=== PATIENT | female | born 1960 | race Caucasian/White ===

== ENCOUNTER 2016-06-07 17:30 | Emergency (ER) | payer BC ==
[~2016-06-07] VITALS: Ht 172.7 cm; Wt 65.9 kg
[~2016-06-07 17:30] MED LIST: ASPIR 8181 M1 PO; Advair 250/50 Diskus IH; Advair HFA 115/21 IH; Aspirin E.C. PO; CIPRO500 MG PO; COMBIVENT IH; Ceftin PO; DAILY VALUE1 EACH PO; Ecotrin PO; Folvite PO; GABAPENTIN300 MG PO; LO-DOSE ASPIRIN81 M1 PO; Levaquin PO; MIRALAX17 GM PO; MUCINEX COLD &177 ML PO; NAPROSYN375 MG PO; NITROGLYCERIN0.4 MG SL; NITROSTAT0.4 MG SL; NO HOME MEDS; NORCO 5/3251 TABLET PO; Nitrostat,NitroQuick SL; OXYCODONE-ACET1 EACH PO; PANTOPRAZOLE SO40 MG PO; PERCOCET 5/31 TABLET PO; PREDNISONE50 MG PO; PROVENTIL HFA6.7 GM IH; Proventil,Ventolin H IH; SPIRIVA1 INHALATI IH; Spiriva IH; TRIPLE ANTIBIO1 EACH TP; TYLENOL WITH C1 EACH PO; Tylenol Regular Stre PO; ULTRAM50 MG PO; Ultram PO; ZANTAC150 MG PO; ZITHROMAX Z-PA250 MG PO; ZOVIRAX800 M1 PO; [UNRECOGNIZED DRUG - OTHER]; [UNRECOGNIZED DRUG - OTHER]; celeXA PO; predniSONE PO
[2016-06-07 18:43] LABS: HEMATOCRIT 39.2 % (36.0-46.0); MCH 28.9 PG (29.0-34.0); MCHC 32.4 G/DL (30.0-36.0); MCV 89.3 FL (83-99); MEAN PLAT.VOLUME 9.1 uM^3 (9.5-12.4); PLATELET COUNT 296 K/uL (156-360); RBC DIS.WIDTH-CV 12.1 % (11.8-14.6); RBC DIS.WIDTH-SD 38.4 % (39-53); RED BLOOD COUNT 4.39 M/uL (3.80-5.20); WHITE BLOOD COUNT 8.2 K/uL (4.1-10.2)
[2016-06-07 18:59] LABS: CHLORIDE 105 mEq/L (99-109); POTASSIUM 4.3 mEq/L (3.7-5.4); SODIUM 142 mEq/L (136-147)
[2016-06-07 19:01] LABS: GLUCOSE 103 mg/dL (70-99)
[2016-06-07 19:02] LABS: ANION GAP 9 MEQ/L (2-14)
[2016-06-07 19:05] LABS: GFR ESTIMATE (CALCULATED) > 59 mL/min/
[2016-06-07 19:06] LABS: UREA NITROGEN (BUN) 12 mg/dL (9-23)
[2016-06-07 20:08] LABS: TROP-I INTERPRETATION NEGATIVE; TROPONIN-I < 0.01 ng/mL (0.0-0.30)
[2016-06-07] MEDS ORDERED: PERCOCET 5/31 TABLET PO (21:36)
[2016-06-07] MEDS ORDERED: VALIUM2 MG PO (21:36)
[2016-06-07 21:57] VITALS: BP 101/67
== END 2016-06-07 22:01 | disposition home or self-care (01) ==
LOC: EME 17:30 → RME 17:30
PROVIDERS: Physician Assistant
DX: S29.011A Strain of muscle and tendon of front wall of thorax, initial encounter (principal); X58.XXXA Exposure to other specified factors, initial encounter; R20.2 Paresthesia of skin; R05 Cough; R53.1 Weakness; Z79.82 Long term (current) use of aspirin; Z87.891 Personal history of nicotine dependence
CPT/HCPCS: 70450; 71020; 80048; 84484; 85027; 93005; 99281; 99284

== ENCOUNTER 2016-07-04 20:54 | Observation (INO) | payer OTHER ==
[~2016-07-04] VITALS: Ht 172.7 cm; Wt 69.2 kg
[~2016-07-04 20:54] MED LIST changes: +VALIUM2 MG PO
[2016-07-04 21:27] LABS: HEMATOCRIT 38.6 % (36.0-46.0); MCHC 32.1 G/DL (30.0-36.0); MCV 90.2 FL (83-99); MEAN PLAT.VOLUME 9.1 uM^3 (9.5-12.4); PLATELET COUNT 250 K/uL (156-360); RBC DIS.WIDTH-SD 39.7 % (39-53); RED BLOOD COUNT 4.28 M/uL (3.80-5.20)
[2016-07-04 21:34] LABS: WHITE BLOOD COUNT 5.4 K/uL (4.1-10.2)
[2016-07-04 21:40] LABS: CHLORIDE 109 mEq/L (99-109); POTASSIUM 3.9 mEq/L (3.7-5.4); SODIUM 140 mEq/L (136-147)
[2016-07-04 21:42] LABS: GLUCOSE 89 mg/dL (70-99)
[2016-07-04 21:44] LABS: ANION GAP 7 MEQ/L (2-14)
[2016-07-04 21:46] LABS: GFR ESTIMATE (CALCULATED) > 59 mL/min/
[2016-07-04 21:47] LABS: UREA NITROGEN (BUN) 8 mg/dL (9-23)
[2016-07-04 21:51] LABS: TROP-I INTERPRETATION NEGATIVE; TROPONIN-I < 0.01 ng/mL (0.0-0.30)
[2016-07-04 22:11] LABS: TOTAL BILIRUBIN 0.3 mg/dL (0.0-1.0)
[2016-07-04 22:12] LABS: ALKALINE PHOSPHATASE 85 IU/L (3-129)
[2016-07-04 22:14] LABS: DIRECT BILIRUBIN 0.1 mg/dL (0.0-0.3)
[2016-07-04 22:15] LABS: LIPASE 37 U/L (1.0-51.0)
[2016-07-04] MEDS ORDERED: SPIRIVA1 INHALATI IH (22:31)
[2016-07-04] MEDS ORDERED: ADVIL200 MG PO (22:32)
[2016-07-04] MEDS ORDERED: VENTOLIN HFA18 GM IH (22:32)
[2016-07-05 00:55] VITALS: BP 119/70
[2016-07-05 02:06] LABS: ADD MIUA? YES; BILIRUBIN NEGATIVE; BLOOD NEGATIVE; COLOR STRAW ((YELLOW)); GLUCOSE (STRIP) NEGATIVE; KETONES NEGATIVE; LEUKOCYTES LARGE; NITRITE NEGATIVE; PROTEIN (STRIP) NEGATIVE; SPECIFIC GRAVITY 1.006 (1.000-1.030); UROBILINOGEN 0.2 MG/DL (0.2-1.0)
[2016-07-05 02:46] LABS: BACTERIA NONE SEEN /HPF; EPITHELIAL CELLS RARE /HPF; MUCUS TRACE /LPF; RED BLOOD CELLS 15-20 /HPF (0-5); UCUL ADDED? NO
[2016-07-05 03:59] VITALS: BP 83/53
[2016-07-05 07:47] VITALS: BP 100/59
[2016-07-05 09:35] LABS: HEMATOCRIT 36.2 % (36.0-46.0); MCH 29.1 PG (29.0-34.0); MCHC 31.8 G/DL (30.0-36.0); MCV 91.6 FL (83-99); MEAN PLAT.VOLUME 9.2 uM^3 (9.5-12.4); PLATELET COUNT 209 K/uL (156-360); RBC DIS.WIDTH-CV 11.9 % (11.8-14.6); RBC DIS.WIDTH-SD 40.4 % (39-53); RED BLOOD COUNT 3.95 M/uL (3.80-5.20); WHITE BLOOD COUNT 4.6 K/uL (4.1-10.2)
[2016-07-05 09:55] LABS: ANION GAP 6 MEQ/L (2-14); CHLORIDE 109 MEQ/L (99-109); POTASSIUM 4.6 MEQ/L (3.7-5.4); SAMPLE HEMOLYSIS CHECK 0; SAMPLE ICTERIC CHECK 0; SAMPLE LIPEMIA CHECK 0; SODIUM 140 MEQ/L (136-147)
[2016-07-05 09:58] LABS: HDL CHOLESTEROL 40 MG/DL (Desirable>=50); LDL CHOLESTEROL 84 mg/dL (Desirable<100); NON-HDL CHOLESTEROL 108 mg/dL (Desirable<160); TOTAL CHOLESTEROL 148 mg/dL (Desirable<200); TRIGLYCERIDES 119 MG/DL (Normal: <150)
[2016-07-05 10:01] LABS: GFR ESTIMATE (CALCULATED) > 59 mL/min/; GLUCOSE 99 mg/dL (70-99); UREA NITROGEN (BUN) 10 mg/dL (9-23)
[2016-07-05 10:03] LABS: TROP-I INTERPRETATION NEGATIVE; TROPONIN-I < 0.01 ng/mL (0.0-0.30)
[2016-07-05 11:37] VITALS: BP 101/58
== END 2016-07-05 17:10 | disposition home or self-care (01) ==
LOC: EME 20:54 → 5WEST 23:18 → EDOF 23:18 → 5WEST 07-05 00:17
PROVIDERS: Nurse Practitioner Family; Physician Assistant Medical
DX: R07.89 Other chest pain (principal); I25.10 Atherosclerotic heart disease of native coronary artery without angina pectoris; J44.9 Chronic obstructive pulmonary disease, unspecified; G89.29 Other chronic pain; I25.2 Old myocardial infarction; F32.9 Major depressive disorder, single episode, unspecified; I69.351 Hemiplegia and hemiparesis following cerebral infarction affecting right dominant side; Z85.038 Personal history of other malignant neoplasm of large intestine; Z87.891 Personal history of nicotine dependence
CPT/HCPCS: 70450; 71020; 73502; 73630; 80048; 80061; 80076; 81003; 83690; 84484; 85027; 93005; 99202; 99281; 99285; G0378; J0780; J1200; J1644; J1885; J2270; J2405; J7030

== ENCOUNTER 2016-07-23 22:09 | Emergency (ER) | payer OTHER ==
[~2016-07-23] VITALS: Ht 172.7 cm; Wt 66.2 kg
[~2016-07-23 22:09] MED LIST changes: +ADVIL200 MG PO; +VENTOLIN HFA18 GM IH
[2016-07-23 22:35] LABS: HEMATOCRIT 40.2 % (36.0-46.0); MCH 28.8 PG (29.0-34.0); MCHC 31.8 G/DL (30.0-36.0); MCV 90.5 FL (83-99); PLATELET COUNT 241 K/uL (156-360); RED BLOOD COUNT 4.44 M/uL (3.80-5.20); WHITE BLOOD COUNT 4.5 K/uL (4.1-10.2)
[2016-07-23 22:45] LABS: CHLORIDE 106 mEq/L (99-109); POTASSIUM 3.7 mEq/L (3.7-5.4); SODIUM 140 mEq/L (136-147)
[2016-07-23 22:47] LABS: GLUCOSE 89 mg/dL (70-99)
[2016-07-23 22:48] LABS: ANION GAP 9 MEQ/L (2-14)
[2016-07-23 22:51] LABS: GFR ESTIMATE (CALCULATED) > 59 mL/min/
[2016-07-23 22:52] LABS: UREA NITROGEN (BUN) 12 mg/dL (9-23)
[2016-07-24] MEDS ORDERED: VENTOLIN HFA18 GM IH (00:23)
[2016-07-24] MEDS ORDERED: PREDNISONE50 MG PO (00:23)
[2016-07-24] MEDS ORDERED: TESSALON PERLE100 MG PO (00:30)
[2016-07-24 00:49] VITALS: BP 147/99
== END 2016-07-24 01:09 | disposition home or self-care (01) ==
LOC: EME 22:09
DX: J20.9 Acute bronchitis, unspecified (principal); J44.0 Chronic obstructive pulmonary disease with (acute) lower respiratory infection; Z79.82 Long term (current) use of aspirin; Z87.891 Personal history of nicotine dependence
CPT/HCPCS: 71020; 80048; 85027; 94640 76; 94664; 99281; 99284; J7512

== ENCOUNTER 2016-07-30 19:11 | Inpatient (IN) | payer OTHER ==
[~2016-07-30] VITALS: Ht 174 cm; Wt 63.2 kg
[~2016-07-30 19:11] MED LIST changes: +TESSALON PERLE100 MG PO
[2016-07-30 20:14] LABS: ADD MIUA? YES; BILIRUBIN NEGATIVE; BLOOD NEGATIVE; COLOR YELLOW ((YELLOW)); GLUCOSE (STRIP) NEGATIVE; KETONES NEGATIVE; LEUKOCYTES TRACE; NITRITE NEGATIVE; PROTEIN (STRIP) NEGATIVE; SPECIFIC GRAVITY 1.017 (1.000-1.030); UROBILINOGEN 0.2 MG/DL (0.2-1.0)
[2016-07-30 20:27] LABS: CHLORIDE 107 mEq/L (99-109); HEMATOCRIT 37.2 % (36.0-46.0); MCH 29.4 PG (29.0-34.0); MCHC 33.6 G/DL (30.0-36.0); MCV 87.5 FL (83-99); MEAN PLAT.VOLUME 8.7 uM^3 (9.5-12.4); PLATELET COUNT 292 K/uL (156-360); POTASSIUM 3.8 mEq/L (3.7-5.4); RBC DIS.WIDTH-SD 38.5 % (39-53); RED BLOOD COUNT 4.25 M/uL (3.80-5.20); SODIUM 139 mEq/L (136-147)
[2016-07-30 20:29] LABS: GLUCOSE 111 mg/dL (70-99); WHITE BLOOD COUNT 9.4 K/uL (4.1-10.2)
[2016-07-30 20:31] LABS: ANION GAP 9 MEQ/L (2-14); TOTAL BILIRUBIN 0.4 mg/dL (0.0-1.0)
[2016-07-30 20:33] LABS: ALKALINE PHOSPHATASE 86 IU/L (3-129); GFR ESTIMATE (CALCULATED) > 59 mL/min/
[2016-07-30 20:34] LABS: UREA NITROGEN (BUN) 14 mg/dL (9-23)
[2016-07-30 20:43] LABS: INFLUENZA A VIRAL ANTIGEN NEGATIVE; INFLUENZA B VIRAL ANTIGEN NEGATIVE
[2016-07-30 20:52] LABS: AMORPHOUS PHOSPHATE CRYSTALS 4+; BACTERIA RARE /HPF; EPITHELIAL CELLS 1+ /HPF; MUCUS NONE SEEN /LPF; RED BLOOD CELLS 0-5 /HPF (0-5); UCUL ADDED? NO; WHITE BLOOD CELLS 0-5 /HPF (0-5)
[2016-07-31] VITALS (8 sets, daily range): BP systolic 99–147; BP diastolic 61–71
[2016-08-01 03:35] VITALS: BP 120/65
[2016-08-01 08:00] VITALS: BP 123/78
[2016-08-01 12:00] VITALS: BP 122/73
[2016-08-01 16:10] VITALS: BP 122/65
[2016-08-01 19:48] VITALS: BP 131/71
[2016-08-01 23:42] VITALS: BP 117/74
[2016-08-02 03:33] VITALS: BP 132/76
[2016-08-02 08:00] VITALS: BP 143/76
[2016-08-02 12:00] VITALS: BP 122/71
[2016-08-02 16:00] VITALS: BP 121/67
[2016-08-02 19:39] VITALS: BP 150/70
[2016-08-02 19:43] VITALS: BP 119/70
[2016-08-03] VITALS (8 sets, daily range): BP systolic 125–166; BP diastolic 66–85
[2016-08-04 04:03] VITALS: BP 138/65
[2016-08-04 07:10] VITALS: BP 160/89
[2016-08-04 11:00] VITALS: BP 133/81
[2016-08-04 15:55] VITALS: BP 137/92
[2016-08-04 19:58] VITALS: BP 144/80
[2016-08-05] VITALS (7 sets, daily range): BP systolic 132–148; BP diastolic 79–99
[2016-08-05 07:05] LABS: HEMATOCRIT 36.5 % (36.0-46.0); MCHC 32.3 G/DL (30.0-36.0); MCV 89.7 FL (83-99); MEAN PLAT.VOLUME 9.2 uM^3 (9.5-12.4); NRBC (%) 0.2 /100 WBC (0-0); PLATELET COUNT 285 K/uL (156-360); RBC DIS.WIDTH-CV 12.4 % (11.8-14.6); RBC DIS.WIDTH-SD 41.1 % (39-53); RED BLOOD COUNT 4.07 M/uL (3.80-5.20); WHITE BLOOD COUNT 18.9 K/uL (4.1-10.2)
[2016-08-05 07:14] LABS: ANION GAP 9 MEQ/L (2-14); CHLORIDE 101 MEQ/L (99-109); GFR ESTIMATE (CALCULATED) > 59 mL/min/; GLUCOSE 115 mg/dL (70-99); SAMPLE HEMOLYSIS CHECK 2; SAMPLE ICTERIC CHECK 0; SAMPLE LIPEMIA CHECK 0; SODIUM 135 MEQ/L (136-147); UREA NITROGEN (BUN) 17 mg/dL (9-23)
[2016-08-05 07:15] LABS: POTASSIUM 4.9 MEQ/L (3.7-5.4)
[2016-08-06 03:28] VITALS: BP 142/74
[2016-08-06 07:12] LABS: HEMATOCRIT 37.1 % (36.0-46.0); MCHC 32.1 G/DL (30.0-36.0); MCV 90.5 FL (83-99); MEAN PLAT.VOLUME 9.1 uM^3 (9.5-12.4); PLATELET COUNT 288 K/uL (156-360); RBC DIS.WIDTH-CV 12.8 % (11.8-14.6); RBC DIS.WIDTH-SD 42.2 % (39-53); WHITE BLOOD COUNT 22.8 K/uL (4.1-10.2)
[2016-08-06 07:57] LABS: CHLORIDE 102 mEq/L (99-109); POTASSIUM 4.6 mEq/L (3.7-5.4); SODIUM 136 mEq/L (136-147)
[2016-08-06 07:58] LABS: GLUCOSE 139 mg/dL (70-99)
[2016-08-06 08:00] LABS: ANION GAP 11 MEQ/L (2-14)
[2016-08-06 08:02] LABS: GFR ESTIMATE (CALCULATED) > 59 mL/min/
[2016-08-06 08:03] LABS: UREA NITROGEN (BUN) 19 mg/dL (9-23)
[2016-08-06 08:14] VITALS: BP 145/93
[2016-08-06 10:41] VITALS: BP 127/83
[2016-08-06 16:00] VITALS: BP 139/80
[2016-08-06 19:30] VITALS: BP 139/81
[2016-08-07 00:14] VITALS: BP 122/64
[2016-08-07 03:42] VITALS: BP 142/73
[2016-08-07 08:51] LABS: HEMATOCRIT 38.1 % (36.0-46.0); MCH 28.7 PG (29.0-34.0); MCHC 31.8 G/DL (30.0-36.0); MCV 90.3 FL (83-99); MEAN PLAT.VOLUME 8.9 uM^3 (9.5-12.4); NRBC (%) 0.1 /100 WBC (0-0); PLATELET COUNT 303 K/uL (156-360); RBC DIS.WIDTH-CV 13.2 % (11.8-14.6); RBC DIS.WIDTH-SD 42.8 % (39-53); RED BLOOD COUNT 4.22 M/uL (3.80-5.20); WHITE BLOOD COUNT 28.5 K/uL (4.1-10.2)
[2016-08-07 09:09] LABS: ANION GAP 12 MEQ/L (2-14); CHLORIDE 98 MEQ/L (99-109); POTASSIUM 4.5 MEQ/L (3.7-5.4); SAMPLE HEMOLYSIS CHECK 0; SAMPLE ICTERIC CHECK 0; SAMPLE LIPEMIA CHECK 0; SODIUM 135 MEQ/L (136-147)
[2016-08-07 09:14] LABS: GFR ESTIMATE (CALCULATED) > 59 mL/min/; GLUCOSE 135 mg/dL (70-99); UREA NITROGEN (BUN) 20 mg/dL (9-23)
[2016-08-07 09:53] VITALS: BP 149/95
[2016-08-07 16:16] VITALS: BP 135/81
[2016-08-07 19:49] VITALS: BP 145/88
[2016-08-07 23:53] VITALS: BP 138/80
[2016-08-08 04:05] VITALS: BP 131/67
[2016-08-08 06:22] LABS: HEMATOCRIT 37.5 % (36.0-46.0); MCH 29.3 PG (29.0-34.0); MCHC 32.5 G/DL (30.0-36.0); MCV 89.9 FL (83-99); MEAN PLAT.VOLUME 8.8 uM^3 (9.5-12.4); PLATELET COUNT 276 K/uL (156-360); RBC DIS.WIDTH-CV 13.3 % (11.8-14.6); RBC DIS.WIDTH-SD 42.9 % (39-53); RED BLOOD COUNT 4.17 M/uL (3.80-5.20); WHITE BLOOD COUNT 26.4 K/uL (4.1-10.2)
[2016-08-08 06:34] LABS: ANION GAP 13 MEQ/L (2-14); CHLORIDE 96 MEQ/L (99-109); GFR ESTIMATE (CALCULATED) > 59 mL/min/; GLUCOSE 156 mg/dL (70-99); POTASSIUM 4.8 MEQ/L (3.7-5.4); SAMPLE HEMOLYSIS CHECK 0; SAMPLE ICTERIC CHECK 0; SAMPLE LIPEMIA CHECK 0; SODIUM 135 MEQ/L (136-147); UREA NITROGEN (BUN) 25 mg/dL (9-23)
[2016-08-08 07:10] VITALS: BP 159/84
[2016-08-08 11:48] VITALS: BP 138/89
[2016-08-08 16:12] VITALS: BP 140/96
[2016-08-08 18:54] VITALS: BP 155/90
[2016-08-08 22:58] VITALS: BP 138/74
[2016-08-09 03:05] VITALS: BP 117/68
[2016-08-09 06:50] VITALS: BP 126/93
[2016-08-09 07:09] LABS: HEMATOCRIT 38.4 % (36.0-46.0); MCH 29.3 PG (29.0-34.0); MCHC 32.3 G/DL (30.0-36.0); MCV 90.8 FL (83-99); MEAN PLAT.VOLUME 8.8 uM^3 (9.5-12.4); NRBC (%) 0.1 /100 WBC (0-0); PLATELET COUNT 269 K/uL (156-360); RBC DIS.WIDTH-CV 13.8 % (11.8-14.6); RED BLOOD COUNT 4.23 M/uL (3.80-5.20); WHITE BLOOD COUNT 22.8 K/uL (4.1-10.2)
[2016-08-09 07:35] LABS: ANION GAP 10 MEQ/L (2-14); CHLORIDE 99 MEQ/L (99-109); GFR ESTIMATE (CALCULATED) > 59 mL/min/; POTASSIUM 4.5 MEQ/L (3.7-5.4); SAMPLE HEMOLYSIS CHECK 0; SAMPLE ICTERIC CHECK 0; SAMPLE LIPEMIA CHECK 0; SODIUM 135 MEQ/L (136-147); UREA NITROGEN (BUN) 29 mg/dL (9-23)
[2016-08-09 07:37] LABS: GLUCOSE 85 mg/dL (70-99)
[2016-08-09] MEDS ORDERED: THEOPHYLLINE400 MG PO (08:39)
[2016-08-09] MEDS ORDERED: ADVAIR HFA120 INHALA IH (08:39)
[2016-08-09] MEDS ORDERED: MUCINEX600 MG PO (08:39)
[2016-08-09] MEDS ORDERED: MONTELUKAST SOD10 MG PO (08:39)
[2016-08-09] MEDS ORDERED: LIDOCAINE700 MG TD (08:39)
[2016-08-09] MEDS ORDERED: PREDNISONE20 MG PO (08:39)
== END 2016-08-09 10:35 | disposition home or self-care (01) | DRG 190 ==
LOC: EME 19:11 → EXP 19:11 → EDOF 07-31 00:02 → 5WEST 07-31 00:50 → 2EAST 07-31 08:43 → 5WEST 07-31 08:43 → 2EAST 07-31 12:11
PROVIDERS: Hospitalist; Nurse Practitioner Family
DX: J44.1 Chronic obstructive pulmonary disease with (acute) exacerbation (principal); I25.2 Old myocardial infarction; I25.10 Atherosclerotic heart disease of native coronary artery without angina pectoris; Z86.73 Personal history of transient ischemic attack (TIA), and cerebral infarction without residual deficits; I10 Essential (primary) hypertension; J20.9 Acute bronchitis, unspecified; J44.0 Chronic obstructive pulmonary disease with (acute) lower respiratory infection; Z87.891 Personal history of nicotine dependence; Z85.038 Personal history of other malignant neoplasm of large intestine; Z79.82 Long term (current) use of aspirin; F41.9 Anxiety disorder, unspecified; G89.29 Other chronic pain; S93.402A Sprain of unspecified ligament of left ankle, initial encounter; X58.XXXA Exposure to other specified factors, initial encounter; F33.2 Major depressive disorder, recurrent severe without psychotic features; J96.00 Acute respiratory failure, unspecified whether with hypoxia or hypercapnia
CPT/HCPCS: 71010; 71020; 73610; 80048; 80053; 81003; 85027; 87502; 93005; 94010; 94640; 94640 76; 94644; 94760; 97530 GO; 97530 GP; 99202; 99281; 99285; J0696; J1644; J2920; J2930; J7050; J7512

== ENCOUNTER 2016-09-03 20:43 | Emergency (ER) | payer OTHER ==
[~2016-09-03] VITALS: Ht 172.7 cm; Wt 66.1 kg
[~2016-09-03 20:43] MED LIST changes: +ADVAIR HFA120 INHALA IH; +LIDOCAINE700 MG TD; +MONTELUKAST SOD10 MG PO; +MUCINEX600 MG PO; +PREDNISONE20 MG PO; +THEOPHYLLINE400 MG PO
[2016-09-03 21:35] LABS: HEMATOCRIT 37.5 % (36.0-46.0); MCH 29.7 PG (29.0-34.0); MCHC 32.5 G/DL (30.0-36.0); MCV 91.2 FL (83-99); MEAN PLAT.VOLUME 8.7 uM^3 (9.5-12.4); PLATELET COUNT 290 K/uL (156-360); RBC DIS.WIDTH-CV 13.5 % (11.8-14.6); RBC DIS.WIDTH-SD 45.1 % (39-53); RED BLOOD COUNT 4.11 M/uL (3.80-5.20)
[2016-09-03 21:36] LABS: WHITE BLOOD COUNT 8.2 K/uL (4.1-10.2)
[2016-09-03 21:42] LABS: D-DIMER ELISA 0.32 mg/L FEU (< 0.57)
[2016-09-03 21:47] LABS: CHLORIDE 110 mEq/L (99-109); POTASSIUM 3.6 mEq/L (3.7-5.4); SODIUM 141 mEq/L (136-147)
[2016-09-03 21:49] LABS: GLUCOSE 92 mg/dL (70-99)
[2016-09-03 21:50] LABS: ANION GAP 9 MEQ/L (2-14)
[2016-09-03 21:51] LABS: TOTAL BILIRUBIN 0.4 mg/dL (0.0-1.0)
[2016-09-03 21:53] LABS: ALKALINE PHOSPHATASE 86 IU/L (3-129); GFR ESTIMATE (CALCULATED) > 59 mL/min/
[2016-09-03 21:54] LABS: DIRECT BILIRUBIN 0.1 mg/dL (0.0-0.3); UREA NITROGEN (BUN) 8 mg/dL (9-23)
[2016-09-03 21:56] LABS: LIPASE 31 U/L (1.0-51.0)
[2016-09-03 21:59] LABS: TROP-I INTERPRETATION NEGATIVE; TROPONIN-I < 0.01 ng/mL (0.0-0.30)
[2016-09-04 00:11] LABS: TROP-I INTERPRETATION NEGATIVE; TROPONIN-I < 0.01 ng/mL (0.0-0.30)
[2016-09-04] MEDS ORDERED: ZOFRAN4 MG PO (00:48)
[2016-09-04 01:02] VITALS: BP 117/83
== END 2016-09-04 01:04 | disposition home or self-care (01) ==
LOC: EME 20:43
PROVIDERS: Emergency Medicine
DX: R07.9 Chest pain, unspecified (principal); R11.2 Nausea with vomiting, unspecified; R06.02 Shortness of breath; J44.9 Chronic obstructive pulmonary disease, unspecified; Z90.49 Acquired absence of other specified parts of digestive tract; Z79.82 Long term (current) use of aspirin; Z87.891 Personal history of nicotine dependence
CPT/HCPCS: 71020; 74176; 80048; 80076; 83605; 83690; 83880; 84484; 85027; 85379; 87040; 93005; 99281; 99284; J2405

== ENCOUNTER 2016-11-02 19:30 | Emergency (ER) | payer OTHER ==
[~2016-11-02] VITALS: Ht 172.7 cm; Wt 68.0 kg
[~2016-11-02 19:30] MED LIST changes: +ZOFRAN4 MG PO
[2016-11-02 21:04] LABS: MCHC 32.3 G/DL (30.0-36.0); MCV 89.7 FL (83-99); MEAN PLAT.VOLUME 9.3 uM^3 (9.5-12.4); PLATELET COUNT 275 K/uL (156-360); RBC DIS.WIDTH-CV 12.1 % (11.8-14.6); RBC DIS.WIDTH-SD 39.8 % (39-53); RED BLOOD COUNT 4.35 M/uL (3.80-5.20); WHITE BLOOD COUNT 5.4 K/uL (4.1-10.2)
[2016-11-02 21:14] LABS: CHLORIDE 109 mEq/L (99-109); POTASSIUM 4.1 mEq/L (3.7-5.4); SODIUM 143 mEq/L (136-147)
[2016-11-02 21:16] LABS: GLUCOSE 89 mg/dL (70-99)
[2016-11-02 21:17] LABS: ANION GAP 11 MEQ/L (2-14)
[2016-11-02 21:20] LABS: GFR ESTIMATE (CALCULATED) > 59 mL/min/; UREA NITROGEN (BUN) 10 mg/dL (9-23)
[2016-11-02] MEDS ORDERED: REGLAN10 MG PO (22:12)
[2016-11-02] MEDS ORDERED: FIORICET 50-301 EACH PO (22:12)
[2016-11-02 22:41] VITALS: BP 125/113
== END 2016-11-02 22:42 | disposition home or self-care (01) ==
LOC: EME 19:30 → EXP 19:30
PROVIDERS: Physician Assistant
DX: G43.909 Migraine, unspecified, not intractable, without status migrainosus (principal); M54.5 Low back pain; M54.6 Pain in thoracic spine; G89.29 Other chronic pain; J44.9 Chronic obstructive pulmonary disease, unspecified; I25.2 Old myocardial infarction; Z95.5 Presence of coronary angioplasty implant and graft; Z86.73 Personal history of transient ischemic attack (TIA), and cerebral infarction without residual deficits; F32.9 Major depressive disorder, single episode, unspecified; Z85.038 Personal history of other malignant neoplasm of large intestine; Z87.891 Personal history of nicotine dependence
CPT/HCPCS: 70450; 72070; 72100; 80048; 85027; 99281; 99284; J1100; J2765; J7030

== ENCOUNTER 2016-12-09 03:07 | Emergency (ER) | payer OTHER ==
[~2016-12-09] VITALS: Ht 172.7 cm; Wt 63.6 kg
[~2016-12-09 03:07] MED LIST changes: +FIORICET 50-301 EACH PO; +REGLAN10 MG PO
[2016-12-09 03:33] LABS: HEMATOCRIT 38.8 % (36.0-46.0); MCH 29.2 PG (29.0-34.0); MCV 88.6 FL (83-99); MEAN PLAT.VOLUME 8.9 uM^3 (9.5-12.4); PLATELET COUNT 264 K/uL (156-360); RBC DIS.WIDTH-CV 11.9 % (11.8-14.6); RBC DIS.WIDTH-SD 38.3 % (39-53); RED BLOOD COUNT 4.38 M/uL (3.80-5.20); WHITE BLOOD COUNT 6.6 K/uL (4.1-10.2)
[2016-12-09 03:42] LABS: CHLORIDE 107 mEq/L (99-109); POTASSIUM 4.1 mEq/L (3.7-5.4); SODIUM 141 mEq/L (136-147)
[2016-12-09 03:44] LABS: GLUCOSE 126 mg/dL (70-99)
[2016-12-09 03:46] LABS: ANION GAP 10 MEQ/L (2-14)
[2016-12-09 03:48] LABS: ADD MIUA? NO; BILIRUBIN NEGATIVE; BLOOD NEGATIVE; COLOR COLORLESS ((YELLOW)); GLUCOSE (STRIP) NEGATIVE; KETONES NEGATIVE; LEUKOCYTES NEGATIVE; NITRITE NEGATIVE; PROTEIN (STRIP) NEGATIVE; SPECIFIC GRAVITY 1.004 (1.000-1.030); UCUL ADDED? NO; UROBILINOGEN 0.2 MG/DL (0.2-1.0)
[2016-12-09 03:48] LABS: GFR ESTIMATE (CALCULATED) > 59 mL/min/
[2016-12-09 03:49] LABS: UREA NITROGEN (BUN) 14 mg/dL (9-23)
[2016-12-09 03:55] LABS: TROP-I INTERPRETATION NEGATIVE; TROPONIN-I < 0.01 ng/mL (0.0-0.30)
[2016-12-09 05:23] LABS: TROP-I INTERPRETATION NEGATIVE; TROPONIN-I < 0.01 ng/mL (0.0-0.30)
[2016-12-09] MEDS ORDERED: NEXIUM40 MG PO (05:45)
[2016-12-09 06:38] VITALS: BP 112/83
== END 2016-12-09 06:42 | disposition home or self-care (01) ==
LOC: EME 03:07
PROVIDERS: Nurse Practitioner Family
DX: R07.9 Chest pain, unspecified (principal); K21.9 Gastro-esophageal reflux disease without esophagitis; I25.2 Old myocardial infarction; Z86.73 Personal history of transient ischemic attack (TIA), and cerebral infarction without residual deficits; Z79.82 Long term (current) use of aspirin; Z87.891 Personal history of nicotine dependence
CPT/HCPCS: 71020; 80048; 81003; 84484; 85027; 93005; 99281; 99284

== ENCOUNTER 2017-05-08 13:50 | Emergency (ER) | payer OTHER ==
[~2017-05-08] VITALS: Ht 172.7 cm; Wt 66.4 kg
[~2017-05-08 13:50] MED LIST changes: +NEXIUM40 MG PO
[2017-05-08 14:44] LABS: HEMATOCRIT 40.2 % (36.0-46.0); HEMOGLOBIN 13.3 G/DL (11.9-15.5); MCH 29.4 PG (29.0-34.0); MCHC 33.1 G/DL (30.0-36.0); MCV 88.9 FL (83-99); PLATELET COUNT 293 K/uL (156-360); RBC DIS.WIDTH-SD 42.3 % (39-53); RED BLOOD COUNT 4.52 M/uL (3.80-5.20); WHITE BLOOD COUNT 11.8 K/uL (4.1-10.2)
[2017-05-08 14:54] LABS: CHLORIDE 104 mEq/L (99-109); POTASSIUM 4.4 mEq/L (3.7-5.4); SODIUM 139 mEq/L (136-147)
[2017-05-08 14:56] LABS: GLUCOSE 131 mg/dL (70-99)
[2017-05-08 15:00] LABS: CREATININE 0.9 mg/dL (0.6-1.3); GFR ESTIMATE (CALCULATED) > 59 mL/min/
[2017-05-08 15:01] LABS: UREA NITROGEN (BUN) 14 mg/dL (9-23)
[2017-05-08] MEDS ORDERED: VENTOLIN HFA18 GM IH (15:13)
[2017-05-08 15:15] VITALS: BP 125/81
== END 2017-05-08 15:37 | disposition home or self-care (01) ==
LOC: EME 13:50
PROVIDERS: Nurse Practitioner Family
DX: J10.1 Influenza due to other identified influenza virus with other respiratory manifestations (principal); F32.9 Major depressive disorder, single episode, unspecified; G43.909 Migraine, unspecified, not intractable, without status migrainosus; I25.2 Old myocardial infarction; J44.9 Chronic obstructive pulmonary disease, unspecified; Z86.73 Personal history of transient ischemic attack (TIA), and cerebral infarction without residual deficits; Z79.82 Long term (current) use of aspirin; F17.200 Nicotine dependence, unspecified, uncomplicated
CPT/HCPCS: 71046; 80048; 85027; 87502; 94640

== ENCOUNTER 2017-07-30 10:42 | Emergency (ER) | payer OTHER ==
[~2017-07-30] VITALS: Ht 172.7 cm; Wt 60.8 kg
[2017-07-30 11:33] LABS: HEMATOCRIT 40.2 % (36.0-46.0); HEMOGLOBIN 13.4 G/DL (11.9-15.5); MCH 29.8 PG (29.0-34.0); MCHC 33.3 G/DL (30.0-36.0); MCV 89.3 FL (83-99); PLATELET COUNT 270 K/uL (156-360); RBC DIS.WIDTH-CV 12.6 % (11.8-14.6); RBC DIS.WIDTH-SD 41.1 % (39-53); WHITE BLOOD COUNT 12.6 K/uL (4.1-10.2)
[2017-07-30 11:46] LABS: ALBUMIN 4.2 g/dL (3.2-4.8); CHLORIDE 107 mEq/L (99-109); POTASSIUM 4.4 mEq/L (3.7-5.4); SODIUM 138 mEq/L (136-147)
[2017-07-30 11:48] LABS: GLUCOSE 99 mg/dL (70-99)
[2017-07-30 11:49] LABS: TOTAL PROTEIN 6.8 g/dL (6.4-8.3)
[2017-07-30 11:50] LABS: TOTAL BILIRUBIN 0.7 mg/dL (0.0-1.0)
[2017-07-30 11:52] LABS: ALKALINE PHOSPHATASE 111 IU/L (3-129); CREATININE 0.8 mg/dL (0.6-1.3); GFR ESTIMATE (CALCULATED) > 59 mL/min/
[2017-07-30 11:53] LABS: UREA NITROGEN (BUN) 10 mg/dL (9-23)
[2017-07-30 11:54] LABS: AST (GOT) 12 IU/L (2-34)
[2017-07-30 11:55] LABS: ALT (GPT) 7 IU/L (3-49)
[2017-07-30 12:18] VITALS: BP 108/63
[2017-07-30] MEDS ORDERED: VENTOLIN HFA18 GM IH (12:54)
== END 2017-07-30 12:19 | disposition home or self-care (01) ==
LOC: EME 10:42
PROVIDERS: Nurse Practitioner Family
DX: J06.9 Acute upper respiratory infection, unspecified (principal); F17.200 Nicotine dependence, unspecified, uncomplicated; J43.9 Emphysema, unspecified; I25.2 Old myocardial infarction; F32.9 Major depressive disorder, single episode, unspecified; Z86.73 Personal history of transient ischemic attack (TIA), and cerebral infarction without residual deficits; Z85.038 Personal history of other malignant neoplasm of large intestine
CPT/HCPCS: 71046; 80053; 85027; 87502; 94640; 99281; 99284

== ENCOUNTER 2017-09-29 17:04 | Emergency (ER) | payer OTHER ==
[~2017-09-29] VITALS: Ht 174 cm; Wt 58.7 kg
[2017-09-29 18:26] LABS: HEMATOCRIT 36.9 % (36.0-46.0); HEMOGLOBIN 12.4 G/DL (11.9-15.5); MCHC 33.6 G/DL (30.0-36.0); MCV 89.3 FL (83-99); PLATELET COUNT 217 K/uL (156-360); RBC DIS.WIDTH-CV 12.6 % (11.8-14.6); RBC DIS.WIDTH-SD 41.4 % (39-53); RED BLOOD COUNT 4.13 M/uL (3.80-5.20); WHITE BLOOD COUNT 5.4 K/uL (4.1-10.2)
[2017-09-29 19:21] LABS: APPEARANCE SL.HAZY ((CLEAR)); BILIRUBIN NEGATIVE; BLOOD NEGATIVE; COLOR YELLOW ((YELLOW)); GLUCOSE (STRIP) NEGATIVE; KETONES NEGATIVE; LEUKOCYTES NEGATIVE; NITRITE NEGATIVE; PROTEIN (STRIP) 30; SPECIFIC GRAVITY 1.023 (1.000-1.030); UROBILINOGEN 0.2 MG/DL (0.2-1.0)
[2017-09-29 19:30] LABS: BACTERIA RARE /HPF; EPITHELIAL CELLS RARE /HPF; MUCUS TRACE /LPF; WHITE BLOOD CELLS 0-5 /HPF (0-5)
[2017-09-29] MEDS ORDERED: ZITHROMAX Z-PA250 MG PO (19:46)
[2017-09-29] MEDS ORDERED: PHENERGAN-CODE120 ML PO (19:46)
[2017-09-29] MEDS ORDERED: PREDNISONE50 MG PO (19:46)
[2017-09-29 20:15] VITALS: BP 123/79
== END 2017-09-29 20:28 | disposition home or self-care (01) ==
LOC: EME 17:04
PROVIDERS: Physician Assistant
DX: J44.1 Chronic obstructive pulmonary disease with (acute) exacerbation (principal); J44.0 Chronic obstructive pulmonary disease with (acute) lower respiratory infection; J20.9 Acute bronchitis, unspecified; I25.2 Old myocardial infarction; G43.909 Migraine, unspecified, not intractable, without status migrainosus; F32.9 Major depressive disorder, single episode, unspecified; F17.200 Nicotine dependence, unspecified, uncomplicated; Z90.49 Acquired absence of other specified parts of digestive tract; Z79.82 Long term (current) use of aspirin; Z79.51 Long term (current) use of inhaled steroids; Z86.73 Personal history of transient ischemic attack (TIA), and cerebral infarction without residual deficits; Z85.038 Personal history of other malignant neoplasm of large intestine
CPT/HCPCS: 71046; 81003; 83605; 85027; 94640; 94640 76; 99281; 99284; J1100